=== PATIENT | male | born 1960 | race Caucasian/White ===

== ENCOUNTER 2019-08-19 07:34 | Outpatient (CLI) | payer BC ==
--- NOTE | 2019-08-19 08:17 | RAD ---
Exam: X-ray sinus [place]' view only HISTORY: MRI clearance. COMPARISON: None FINDINGS: No radiopaque foreign bodies projecting over either orbit or visualized sinuses/calvarium. IMPRESSION: No radiopaque foreign body.
--- NOTE | 2019-08-19 11:04 | MRI ---
BRAIN MRI WITH AND WITHOUT CONTRAST: Date: 08/19/2019 COMPARISON: None. HISTORY: Short-term memory loss. TECHNIQUE: Multiplanar, multisequence MR imaging of the brain obtained with and without contrast. FINDINGS: The diffusion-weighted imaging demonstrates no evidence for acute infarction. The axial gradient echo imaging demonstrates no evidence for intracranial hemorrhage. Arterial flow-voids at the axial level of the skull base appear grossly unremarkable on the T2-weight ed imaging. No midline shift, mass effect, or ventricular enlargement is noted. The postcontrast imaging demonstrate no abnormal enhancement. IMPRESSION: Grossly unremarkable contrast enhanced brain MRI. POS: [facility]
== END 2019-08-19 07:35 | disposition home or self-care (01) ==
LOC: BICMRI 07:34
PROVIDERS: ATTEND Psychiatry & Neurology Neurology
DX: R41.3 Other amnesia (principal)
CPT/HCPCS: 70210; 70553; 82565

== ENCOUNTER 2021-07-02 12:13 | Outpatient (CLI) | payer BC | END 2021-07-02 12:14 | disposition home or self-care (01) | LOC: ULT 12:13 | PROVIDERS: ATTEND Nurse Practitioner Adult Health | DX: H53.2 Diplopia (principal); I08.3 Combined rheumatic disorders of mitral, aortic and tricuspid valves | CPT/HCPCS: 93306; 93880 ==